=== PATIENT | female | born 1980 | race Caucasian/White ===

== ENCOUNTER 2018-06-02 11:35 | Day surgery (SDC) | payer OTHER ==
[2018-06-01 08:16] VITALS: BMI 24.3
[2018-06-02] MEDS ORDERED: PROPOFOL 20 ML ONE (14:27)
[2018-06-02] MEDS ORDERED: MIDAZOLAM HCL 2 MG/2 ML SINGLE DOSE VIAL ONE (14:27)
[2018-06-02] MEDS ORDERED: BUPIVACAINE HCL/EPINEPHRINE/PF 30 ML VIAL IJ ONE (14:29)
[2018-06-02] MEDS ORDERED: ONDANSETRON 4 MG/2 ML VIAL ONE ×2 (14:38→16:01)
[2018-06-02] MEDS ORDERED: DEXAMETHASONE SOD PHOSPHATE 4 MG/1 ML VIAL ONE (14:38)
[2018-06-02] MEDS ORDERED: LIDOCAINE HCL/PF 2% SDV 5ML VIAL ONE (14:38)
[2018-06-02] MEDS ORDERED: ceFAZolin SODIUM 1 GM VIAL ONE (14:44)
[2018-06-02] MEDS ORDERED: BUPIVACAINE LIPOSOME/PF (EXPAREL) 266 MG/20 ML VIAL ONE (14:57)
[2018-06-02] MEDS ORDERED: BUPIVACAINE HCL/PF 0.5% (5MG/ML) 10 ML VIAL ONE (14:59)
[2018-06-02] MEDS ORDERED: oxyCODONE HCL 5 MG TABLET PO PRN ×2 (15:17)
[2018-06-02] MEDS ORDERED: ONDANSETRON 4 MG/2 ML VIAL IVPUSH PRN (15:17)
[2018-06-02] MEDS ORDERED: LACTATED RINGERS SOLUTION 1,000 ML IV SCH (15:30)
--- NOTE | 2018-06-02 15:35 | OP ---
Operative Note - Note: Operative Date: 06/02/18 Pre-Operative Diagnosis: left knee itb syndrome Operation: lka, open itb/bursal debridement Surgeon: Madan Rothman Email Specialist: Kp Myers Anesthesiologist/VIDEO SYSTEM REPAIRER: Isaias Anderson Anesthesia: General Operative Report Dictated: Yes
--- NOTE | 2018-06-02 15:35 | DS ---
Physical Examination Vital Signs: Vital Signs Temperature 98.2 F 06/02/18 12:00 Pulse Rate 83 06/02/18 12:00 Respiratory Rate 18 06/02/18 12:00 Blood Pressure 113/77 06/02/18 12:00 O2 Sat by Pulse Oximetry (%) 96 06/02/18 12:00 Discharge Summary Reason For Visit: ITB FRICTION SYNDROME LEFT KNEE Condition: Good - Instructions Diet, Activity, Other Instructions: Post Operative Instructions: Knee Arthroscopy Dr Madan Rothman 1. Pain following an arthroscopy is variable. Some patients will have more pain than others. You have been provided with a prescription for medication that contains a narcotic. You are not allowed to drive while on this medication. You should take Tylenol (Acetaminophen) when taking the pain medication ( it will NOT result in an overdose). Feel free to take medications such as Ibuprofen or Naprosyn in addition to the pain medicine if you do not have any problems with the NSAID class of medications. PLEASE TAKE ASPIRIN 325 MG TWICE A DAY FOR TWO WEEKS TO DECREASE THE RISKS OF BLOOD CLOTS. 2. You are allowed to remove the bandages and shower in 72 hours unless directed otherwise. You are not allowed to bathe or go swimming until further notice 3. You are allowed to put all your weight on the leg and bend your knee 4. Apply ice to the knee for 15 min every hour or so. You may continue this for as many days as you like. 5. Please call the office to schedule a visit to have your sutures removed. 6. If for any reason you believe you may have an infection or are concerned, please feel free to call me. I can be reached through our office number 24 hours a day. 7. Please call our office with any questions; we will review the surgical findings during your post operative visit. Disposition: HOME - Home Medications Comprehensive Discharge Medication List: Ambulatory Orders Acetaminophen [Tylenol Extra Strength] 1,000 mg PO Q6H PRN 06/01/18 Ibuprofen [Motrin -] 600 mg PO TID PRN 06/01/18
--- NOTE | 2018-06-02 15:39 | OP ---
Operative Note - Note: Operative Date: 06/02/18 Pre-Operative Diagnosis: left knee ITB syndrome Operation: LKA, open ITB/Bursal debridement Post-Operative Diagnosis: Same as Pre-op Surgeon: Madan Rothman Getterer: Kp Myers Anesthesiologist/PROMOTIONAL MARKETING AGENT: Isaias Anderson Anesthesia: General Operative Report Dictated: Yes
[2018-06-02] MEDS ORDERED: KETOROLAC TROMETHAMINE 30 MG/1 ML VIAL ONE (15:41)
[2018-06-02] MEDS ORDERED: ACETAMINOPHEN 1000 MG/100 ML VIAL (NON FORMULARY) IVPB ONE ×2 (15:51→16:00)
[2018-06-02] MEDS ORDERED: ACETAMINOPHEN INJECTION 100 ML IVPB ONE (15:52)
[2018-06-02] MEDS ORDERED: oxyCODONE HCL 5 MG TABLET ONE ×3 (16:01→17:47)
[2018-06-02] MEDS ORDERED: ONDANSETRON 4 MG/2 ML VIAL IVPUSH ONE (16:03)
[2018-06-02] MEDS ORDERED: oxyCODONE HCL 5 MG TABLET PO ONE ×2 (16:10→16:53)
[2018-06-02] MEDS ORDERED: HYDROmorphone HCL 0.5 MG/0.5 ML SYRINGE ONE (16:12)
[2018-06-02] MEDS ORDERED: HYDROmorphone HCL CARPU-JECT 2 MG/1 ML DISP.SYRIN IVPUSH ONE ×2 (16:15→16:17)
[2018-06-02] MEDS ORDERED: HYDROmorphone HCL 2 MG TABLET ONE ×2 (17:56→18:33)
[2018-06-02] MEDS ORDERED: HYDROmorphone HCL 2 MG TABLET PO ONE (18:34)
[2018-06-02 18:45] VITALS: BP 122/73; PULSE 71; TEMP 97.9
--- NOTE | 2018-06-12 11:09 | PATH ---
Surgical Pathology Report Patient Name: OLEG FOX Med. Rec. #: [id number] /Age/Gender: 1980 (Age: 37) / F Account: [id number] Location: [facility] Taken: 06/02/2018 Received: 06/02/2018 Reported: 06/12/2018 Physicians: Madan Rothman M.D. Specimen(s) Received A: TENDON ITB LEFT KNEE B: BURSA LEFT KNEE Clinical History ITB friction syndrome left knee Final Diagnosis A. SOFT TISSUE, ITB LEFT KNEE, EXCISION: ORGANIZED FIBROUS TISSUE CONSISTENT WITH TENDON. B. SOFT TISSUE, LEFT KNEE, EXCISION: SYNOVIUM WITH FOCAL FIBROSIS CONSISTENT WITH BURSA. Electronically Signed Hector Reeves M.D. Gross Description A. Received in formalin labeled "tendon ITB left knee," is a 2.1 x 1.2 x 0.3 cm kamara portion of fibrous tissue, consistent with a portion of tendon. Court Stenographer sections are submitted in one cassette. B. Received in formalin labeled "bursa left knee," is a 1.6 x 1.2 x 0.3 cm aggregate of kamara-yellow portions of soft tissue. The specimen is submitted in toto in one cassette. 06/09/2018 saudi06/09/2018
== END 2018-06-02 18:58 | disposition home or self-care (01) ==
LOC: FASU 11:35
PROVIDERS: ATTEND Orthopaedic Surgery
PROC: 0SJD4ZZ Inspection of Left Knee Joint, Percutaneous Endoscopic Approach (ICD-10-PCS; 2018-06-02)
PROC: 0JNM0ZZ Release Left Upper Leg Subcutaneous Tissue and Fascia, Open Approach (ICD-10-PCS; principal; 2018-06-02 14:55)
DX: M76.32 Iliotibial band syndrome, left leg (principal)
CPT/HCPCS: 84703; 88304-TC; 94760; J0131